=== PATIENT | male | born 1950 | race Caucasian/White ===

== ENCOUNTER 2016-10-05 15:55 | Emergency (ER) | payer OTHER ==
[~2016-10-05] VITALS: Ht 170.2 cm; Wt 77.1 kg
[2016-10-05 16:06] VITALS: BP 196/100; PULSE 91; RESP 18; TEMP 100.6; O2SAT 98
--- NOTE | 2016-10-05 16:12 | NUR ---
Patient to ER bed 05 to gown for evaluation. Side rails up.
--- NOTE | 2016-10-05 16:14 | NUR ---
Pt brought by daughter, A&Ox4, pt c/o urinary pain and burning, high blood pressure and fever, ambulatory, skin pink and warm, cap refill <3, VSS, pt temp 100.7, MD Dr Sanchez aware.
--- NOTE | 2016-10-05 16:15 | NUR ---
ER at bedside examining patient.
[2016-10-05] MEDS ORDERED: PIPERACILLIN/TAZO 3.38 GM in NS 50 ML IV ONE (16:30)
[2016-10-05] MEDS ORDERED: ACETAMINOPHEN 500 MG TABLET PO ONE (16:30)
[2016-10-05] MEDS ORDERED: NACL 0.9% 1,000 ML IV ONE (16:30)
[2016-10-05] MEDS ORDERED: cloNIDine HCL 0.1 MG TABLET PO ONE (16:30)
[2016-10-05 16:43] LABS: BILIRUBIN,URINE NEGATIVE (NEGATIVE); BLOOD, URINE 3+ (NEGATIVE); GLUCOSE,URINE TRACE (NEGATIVE); KETONES,URINE TRACE (NEGATIVE); LEUKOCYTE ESTERASE ,URINE 1+ (NEGATIVE); NITRITE, URINE POSITIVE (NEGATIVE); PROTEIN URINE 3+ (NEGATIVE)
[2016-10-05] MEDS ORDERED: PIPERACILLIN/TAZOBACTAM 3.375 GM/VIAL (ZOSYN) IV ONE (16:46)
[2016-10-05 16:49] LABS: BASOPHILS # (AUTO) 0.1 K/uL (0.0-0.2); EOSINOPHILS % (AUTO) 0.2 % (0.0-4.0); HEMOGLOBIN 15.8 g/dL (14.0-18.0); RED CELL DISTRIBUTION WIDTH 14.4 % (9.0-15.0)
[2016-10-05 16:55] LABS: BASOPHILS % (AUTO) 0.6 % (0.0-2.0); HEMATOCRIT 46.7 % (36-54); LYMPHOCYTES # (AUTO) 1.1 K/uL (1.0-5.5); LYMPHOCYTES % (AUTO) 8.9 % (20.5-51.5); MEAN CORPUSCULAR HEMOGLOBIN 32 pg (27-31); MEAN CORPUSCULAR HGB CONC 34 % (32-36); MEAN CORPUSCULAR VOLUME 94 fL (79.0-98.0); MONOCYTES # (AUTO) 1.3 K/uL (0.0-1.0); NEUTROPHILS # (AUTO) 10.3 K/uL (1.8-7.7); NEUTROPHILS % (AUTO) 80.3 % (40.0-70.0); RED BLOOD CELL COUNT(AUTO) 4.96 MIL/uL (4.2-6.2); WHITE BLOOD COUNT (AUTO) 12.8 K/uL (4.8-10.8)
[2016-10-05 16:56] LABS: INR 1.2 (0.80-1.20); PROTHROMBIN TIME 12.7 SECS (9.5-12.5)
[2016-10-05 16:57] LABS: CALCIUM 8.9 mg/dL (8.4-11.0); CREATININE 0.96 mg/dL (0.55-1.30); POTASSIUM 3.7 mmol/L (3.5-5.1)
[2016-10-05 16:59] LABS: ALBUMIN 3.6 g/dL (3.4-4.8); TOTAL BILIRUBIN 1.8 mg/dL (0.0-1.0); TOTAL PROTEIN, SERUM 8.8 g/dL (6.4-8.3)
[2016-10-05 17:02] LABS: CLARITY/URINE CLOUDY (CLEAR); COLOR,URINE RED (YELLOW); UROBILINOGEN,URINE >=8 (0.2-1.0)
[2016-10-05 17:04] LABS: BACTERIA,URINE MODERATE /HPF (None Seen); MUCUS,URINE None Seen /LPF (None Seen); RBC,URINE >100 /HPF (0-3)
[2016-10-05 17:08] LABS: PLATELET COUNT (AUTO) 57 K/uL (130-430)
[2016-10-05 17:43] VITALS: BP 134/71; PULSE 88; RESP 14; TEMP 96.9; O2SAT 99
--- NOTE | 2016-10-05 17:43 | NUR ---
Patient given written and verbal discharge instructions and verbalizes understanding. ER MD Dr. Sanchez discussed with patient the results and treatment provided. Patient in stable condition. ID arm band removed. IV catheter removed intact and dressing applied, no active bleeding. Rx of Cipro and Pyridium given. Patient educated on pain management and to follow up with PMD. Pain Scale 0/10. Opportunity for questions provided and answered. Pt discharged by LEILANI Lerner
== END 2016-10-05 17:43 | disposition home or self-care (01) ==
LOC: SED 15:55
DX: N39.0 Urinary tract infection, site not specified (principal); I10 Essential (primary) hypertension
CPT/HCPCS: 36415; 71010; 80053; 81000; 83605; 85025; 85610; 87040; 93005; 96374; 99285; J2543